=== PATIENT | male | born 1995 | race Caucasian/White ===

== ENCOUNTER 2017-12-26 12:20 | Emergency (ER) | payer MEDICAID, OTHER ==
[~2017-12-26] VITALS: Ht 190.5 cm; Wt 82.0 kg
[2017-12-26 12:28] VITALS: BP 110/66
== END 2017-12-26 15:19 | disposition left against medical advice (07) ==
LOC: ER 12:56
DX: R07.9 Chest pain, unspecified (principal)
CPT/HCPCS: 93005; 99283